=== PATIENT | male | born 1980 ===

== ENCOUNTER 2018-07-18 12:26 | Emergency (ER) | payer OTHER ==
[2018-07-18 12:57] VITALS: RESP 18
[2018-07-18] MEDS ORDERED: Lidocaine 5% Patch TD STA (12:57)
[2018-07-18] MEDS ORDERED: Lidocaine 5% Patch TD ONE (13:06)
--- NOTE | 2018-07-18 13:58 | ED PDOC ---
HPI: Back Time Seen by Provider: 07/18/18 12:50 Chief Complaint (Nursing): Back Pain Chief Complaint (Provider): Back Pain History Per: Patient History/Exam Limitations: no limitations Onset/Duration Of Symptoms: Days (x1) Current Symptoms Are (Timing): Still Present Additional Complaint(s): 37 year old male who works for [employer] presents to the ED for evaluation of lower back pain s/p lifting a heavy box off a hip-level shelf yesterday at work, unrelieved with 400mg Motrin that afternoon. He notes the pain is worse with movement and slightly alleviated with bending forward. Otherwise denies dysuria, hematuria, incontinence, abdominal pain, fever, chills, weakness, tingling, and numbness. PMD: none provided Past Medical History Reviewed: Historical Data, Nursing Documentation, Vital Signs Vital Signs: Last Vital Signs Temp 98.0 F 07/18/18 12:56 Pulse 73 07/18/18 12:56 Resp 18 07/18/18 12:56 BP 120/73 07/18/18 12:56 Pulse Ox 98 07/18/18 12:56 - Medical History PMH: No Chronic Diseases - Surgical History Surgical History: No Surg Hx - Family History Family History: States: Unknown Family Hx - Social History Current smoker - smoking cessation education provided: Yes (some days) Alcohol: None Drugs: Denies - Home Medications Home Medications: Ambulatory Orders Medication Instructions Recorded Cyclobenzaprine [Cyclobenzaprine 10 mg PO Q8 PRN #10 tab 07/18/18 HCl] Lidocaine 5% [Lidoderm] 1 ea TD DAILY PRN #10 patch 07/18/18 RX: Naproxen [Naprosyn] 500 mg PO BID PRN #10 tab 07/18/18 - Allergies Allergies/Adverse Reactions: Allergies Allergy/AdvReac Type Severity Reaction Status Date / Time No Known Allergies Allergy Verified 07/18/18 12:56 Review of Systems ROS Statement: Except As Marked, All Systems Reviewed And Found Negative Constitutional: Negative for: Fever, Chills Gastrointestinal: Negative for: Abdominal Pain Genitourinary Male: Negative for: Dysuria, Incontinence, Hematuria Musculoskeletal: Positive for: Back Pain (lower) Neurological: Negative for: Weakness, Numbness, Other (tingling) Physical Exam - Reviewed Nursing Documentation Reviewed: Yes Vital Signs Reviewed: Yes - Physical Exam Appears: Positive for: In Acute Distress (mild painful) Skin: Positive for: Normal Color, Warm, Dry. Negative for: Rash Cardiovascular/Chest: Positive for: Regular Rate, Rhythm Respiratory: Positive for: Normal Breath Sounds. Negative for: Respiratory Distress Gastrointestinal/Abdominal: Positive for: Normal Exam, Soft. Negative for: Tenderness Back: Positive for: Other (bilateral paralumbar tenderness with muscle spasm). Negative for: L CVA Tenderness, R CVA Tenderness, Vertebral Tenderness Extremity: Positive for: Other (5/5 bilateral LE strength) - ECG O2 Sat by Pulse Oximetry: 98 (RA) Pulse Ox Interpretation: Normal - Radiology X-Ray: Interpreted by Me (LS spine x-ray) X-Ray Interpretation: No Acute Disease - Progress Re-evaluation Time: 15:50 (Gait steady, unassisted. Advised to f/u with PMD for further evaluation but is to return to ED immediately if symptoms worsen.) Condition: Re-examined, Improving,but remains with symptoms Medical Decision Making Medical Decision Making: Time: 1256 Initial Impression: back pain Initial Plan: --Flexeril 10mg PO --Lidocaine 1 ea TD --Toradol 30mg IM --Lumbar spine AP/LAT XR Scribe Attestation: Documented by Desi Friedman, acting as a scribe for Theron Desir PA-C. Provider Scribe Attestation: All medical record entries made by the Scribe were at my direction and personally dictated by me. I have reviewed the chart and agree that the record accurately reflects my personal performance of the history, physical exam, medical decision making, and the department course for this patient. I have also personally directed, reviewed, and agree with the discharge instructions and disposition. Disposition - Clinical Impression Clinical Impression: Low back pain - Patient ED Disposition Is Patient to be Admitted: No - Disposition Referrals: [facility] [Outside] Disposition: Routine/Home Disposition Time: 13:56 Condition: IMPROVED Additional Instructions: FOLLOW UP WITH PMD FOR FURTHER EVALUATION RETURN TO ED IMMEDIATELY IF SYMPTOMS WORSEN ADRIA PORTILLO, thank you for letting us take care of you today. Your provider was Bennie oS MD and you were treated for LOWER BACK PAIN. The emergency medical care you received today was directed at your acute symptoms. If you were prescribed any medication, please fill it and take as directed. It may take several days for your symptoms to resolve. Return to the Emergency Department if your symptoms worsen, do not improve, or if you have any other problems. Please contact your doctor or call one of the physicians/clinics you have been referred to that are listed on the Patient Visit Information form that is included in your discharge packet. Bring any paperwork you were given at discharge with you along with any medications you are taking to your follow up visit. Our treatment cannot replace ongoing medical care by a primary care provider outside of the emergency department. Thank you for allowing the [facility] team to be part of your care today. If you had an X-Ray or CT scan: A Radiologist will review the ED reading if any change in treatment is needed we will contact you. If you had a blood, urine, or wound culture: It will take several days for the results, if any change in treatment is needed we will contact you. If you had an STI test: It will take 48 hours for the results. Please call after 1 week if you have not heard back. Prescriptions: Cyclobenzaprine [Cyclobenzaprine HCl] 10 mg PO Q8 PRN #10 tab PRN Reason: Muscle Spasm Lidocaine 5% [Lidoderm] 1 ea TD DAILY PRN #10 patch PRN Reason: pain RX: Naproxen [Naprosyn] 500 mg PO BID PRN #10 tab PRN Reason: Pain Instructions: Low Back Pain (DC) Forms: [employer] (Danish), [facility] ED School/Work Excuse Print Language: MACEDONIAN
--- NOTE | 2018-07-18 14:09 | RAD ---
Date of service: 07/18/2018 PROCEDURE: Radiographs of the Lumbar Spine. HISTORY: pain COMPARISON: No prior. FINDINGS: BONES: Normal alignment. No listhesis. No fracture. DISC SPACES: Unremarkable. OTHER FINDINGS: 2 mm left renal calculus IMPRESSION: Unremarkable radiographs of the lumbar spine.
[2018-07-18 14:37] VITALS: BP 119/69; PULSE 78; TEMP 98.3
[2018-07-18 16:30] VITALS: O2SAT 98
== END 2018-07-18 14:30 | disposition home or self-care (01) ==
LOC: H.ER 12:26
DX: M54.5 Low back pain (principal); F17.200 Nicotine dependence, unspecified, uncomplicated
CPT/HCPCS: 72100; 96372; 99283; J1885